=== PATIENT | female | born 1955 | race Caucasian/White ===

== ENCOUNTER 2018-03-23 18:27 | Observation (INO) | payer BC ==
[2018-03-23] MEDS ORDERED: ASPIRIN 81 MG CHEWABLE TABLETS PO ONE (19:00)
--- NOTE | 2018-03-23 19:00 | PDOC ---
History of Present Illness - General History Source: Patient, Family Exam Limitations: No Limitations <Mercedes Linares - Last Filed: 03/23/18 19:26> <Araeblla Mtz - Last Filed: 03/23/18 23:10> - General Chief Complaint: Irregular Heart Beat Stated Complaint: Shortness of Breath Time Seen by Provider: 03/23/18 18:59 - History of Present Illness Initial Comments: 03/23/18 19:26 The patient is a 63 yo F with a significant past medical history of AFib on Xarelto and recent diagnosis of Parkinsons who presents to the emergency department for shortness of breath this morning sent by Dr. Lynn. The patient states she felt an irregular heart beat. The patient's sister at bedside, a registered nurse, acts as a manager local and states "even her wrist pulse felt irregular". The patient reports chronic neck and jaw tightness. The patient denies chest pain, dizziness, lightheadedness. The patient denies headache, fever, chills, N/V/D. She denies urinary changes. Allergies: NDKA PCP: Dr. Kate Neuologist: Dr. Lynn (Mercedes Linares) Past History <Mercedes Linares - Last Filed: 03/23/18 19:26> - Past Medical History Cardiac Disorders: Yes (atrial fibrillarion on xarelto x2 years) COPD: No HTN: Yes Other medical history: myleoma left brease - Suicide/Smoking/Psychosocial Hx Smoking History: Former smoker Have you smoked in the past 12 months: No If you are a former smoker, when did you quit?: 1997 Information on smoking cessation initiated: No Hx Alcohol Use: No Drug/Substance Use Hx: No <Arabella Mtz - Last Filed: 03/23/18 23:10> - Past Medical History Allergies/Adverse Reactions: Allergies Allergy/AdvReac Type Severity Reaction Status Date / Time No Known Allergies Allergy Verified 03/23/18 18:45 Home Medications: Ambulatory Orders Calcium Carbonate [Calcium] 500 mg PO DAILY 03/23/18 Losartan/Hydrochlorothiazide [Losartan-Hctz 50-12.5 mg Tab] 1 each PO DAILY Multivitamins [Tab-A-Vit -] 1 tab PO DAILY 03/23/18 Omeprazole Magnesium [Prilosec Otc] 40 mg PO DAILY 03/23/18 Rivaroxaban [Xarelto -] 20 mg PO HS 03/23/18 Sotalol HCl [Betapace] 80 mg PO BID 03/23/18 Review of Systems - Review of Systems Able to Perform ROS?: Yes <Mercedes Linares - Last Filed: 03/23/18 19:26> <Arabella Mtz - Last Filed: 03/23/18 23:10> - Review of Systems Comments:: 03/23/18 19:32 CONSTITUTIONAL: Absent: fever, chills, diaphoresis, generalized weakness, malaise, loss of appetite HEENT: Absent: rhinorrhea, nasal congestion, throat pain, throat swelling, difficulty swallowing, mouth swelling, ear pain, eye pain, visual Changes CARDIOVASCULAR: (+) SOB and irregular heart rate, Absent: chest pain, syncope, palpitations, lightheadedness, peripheral edema RESPIRATORY: Absent: cough, dyspnea with exertion, orthopnea, wheezing, stridor, hemoptysis GASTROINTESTINAL: Absent: abdominal pain, abdominal distension, nausea, vomiting, diarrhea, constipation, melena, hematochezia GENITOURINARY: Absent: dysuria, frequency, urgency, hesitancy, hematuria, flank pain, genital pain MUSCULOSKELETAL: Absent: myalgia, arthralgia, joint swelling SKIN: Absent: rash, itching, pallor HEMATOLOGIC/IMMUNOLOGIC: Absent: easy bleeding, easy bruising, lymphadenopathy, frequent infections ENDOCRINE: Absent: unexplained weight gain, unexplained weight loss, heat intolerance, cold intolerance NEUROLOGIC: Absent: headache, focal weakness or paresthesias, dizziness, unsteady gait, seizure, mental status changes, bladder or bowel incontinence PSYCHIATRIC: Absent: anxiety, depression, suicidal or homicidal ideation, hallucinations. (Mercedes Linares) *Physical Exam <Mercedes Linares - Last Filed: 03/23/18 19:26> <Arabella Mtz - Last Filed: 03/23/18 23:10> - Vital Signs Last Vital Signs Temp Pulse Resp BP Pulse Ox 98.1 F 63 16 133/68 99 03/23/18 18:45 03/23/18 19:52 03/23/18 18:45 03/23/18 18:45 03/23/18 19:52 - Physical Exam Comments: 03/23/18 19:32 GENERAL: Well developed, well nourished. Awake and alert. No acute distress. HEENT: Normocephalic, atraumatic. PERRLA, EOMI. No conjunctival pallor. Sclera are non- icteric. Moist mucous membranes. Oropharynx is clear. NECK: Supple. Full ROM. No JVD. Carotid pulses 2+ and symmetric, without bruits. No thyromegaly. No lymphadenopathy. CARDIOVASCULAR: Regular rate and rhythm. No murmurs, rubs, or gallops. Distal pulses are 2+ and symmetric. PULMONARY: No evidence of respiratory distress. Lungs clear to auscultation bilaterally. No wheezing, rales or rhonchi. ABDOMINAL: Soft. Non-tender. Non-distended. No rebound or guarding. No organomegaly. Normoactive bowel sounds. MUSCULOSKELETAL Normal range of motion at all joints. No bony deformities or tenderness. No CVA tenderness. EXTREMITIES: (+) bilateral pedal edema. No cyanosis. No clubbing. No edema. No calf tenderness. SKIN: Warm and dry. Normal capillary refill. No rashes. No jaundice. NEUROLOGICAL: Alert, awake, appropriate. Cranial nerves 2-12 intact. Normoreflexic in the upper and lower extremities. Normal speech. Toes are down-going bilaterally. Gait is normal without ataxia. PSYCHIATRIC: Cooperative. Good eye contact. Appropriate mood and affect. (Mercedes Linares) ED Treatment Course - LABORATORY CBC & Chemistry Diagram: 03/23/18 20:12 03/23/18 20:12 <Arabella Mtz - Last Filed: 03/23/18 23:10> - ADDITIONAL ORDERS Additional order review: Laboratory Results 03/23/18 03/23/18 20:12 20:12 PT with INR 12.70 INR 1.08 Sodium 139 Potassium 4.2 Chloride 104 Carbon Dioxide 27 Anion Gap 9 BUN 22 H Creatinine 0.7 Creat Clearance w eGFR > 60 Random Glucose 83 Calcium 8.7 Magnesium 2.3 Total Bilirubin 0.6 AST 20 ALT 33 Alkaline Phosphatase 59 Creatine Kinase 61 Troponin I < 0.02 B-Natriuretic Peptide 176.6 H Total Protein 6.9 Albumin 3.7 03/23/18 20:12 RBC 4.72 MCV 82.4 MCHC 34.6 RDW 13.6 MPV 9.6 Neutrophils % 57.3 Lymphocytes % 28.4 Monocytes % 9.0 Eosinophils % 4.4 Basophils % 0.9 - RADIOLOGY Radiology Studies Ordered: Category Date Time Status CHEST X-RAY PORTABLE* [RAD] Stat Radiology 03/23/18 19:00 Taken - Medications Given in the ED: ED Medications Discontinued Medications Generic Name Dose Route Start Last Admin Trade Name Bre PRN Reason Stop Dose Admin Al Hydroxide/Mg Hydroxide 30 ml 03/23/18 20:44 03/23/18 21:17 Mylanta Suspension - PO 03/23/18 20:45 30 ml ONCE ONE Administration Aspirin 162 mg 03/23/18 19:00 03/23/18 20:34 Asa - PO 03/23/18 19:01 162 mg ONCE ONE Administration Famotidine/Sodium Chloride 20 mg in 50 mls @ 100 mls/hr 03/23/18 21:16 22:10 Pepcid 20 Mg Premixed Ivpb - IVPB 03/23/18 21:45 100 mls/hr ONCE ONE Administration Medical Decision Making <Mercedes Linares - Last Filed: 03/23/18 19:26> <Arabella Mtz - Last Filed: 03/23/18 23:10> - Medical Decision Making 03/23/18 23:02 PMH Parkinsons, htn,afib 63-year-old female presents with shortness of breath and a complaint of palpitations. She does have a history of paroxysmal A. fib currently her EKG was normal sinus rhythm. She is on eliquist -in emergency department she complained of her palpitations and then repeat EKG showed she has normal sinus rhythm with occasional PVCs -pt has history of GERD and had c/o burning and was given maalox 03/23/18 23:09 (Arabella Mtz) *DC/Admit/Observation/Transfer <Mercedes Linares - Last Filed: 03/23/18 19:26> - Discharge Dispostion Decision to Admit order: Yes <Arabella Mtz - Last Filed: 03/23/18 23:10> Diagnosis at time of Disposition: Parkinson disease Dyspnea Qualifiers: Dyspnea type: dyspnea on exertion Qualified Code(s): R06.09 - Other forms of dyspnea Afib Qualifiers: Atrial fibrillation type: paroxysmal Qualified Code(s): I48.0 - Paroxysmal atrial fibrillation - Discharge Dispostion Condition at time of disposition: Good Decision to Admit order Date/Time: Decision to Admit Order Category Date Time Status Decision to Admit to Hospital Routine Admission 03/23/18 20:45 Active - Referrals Referrals: Lilia Lu MD [Primary Care Provider] - - Attestations Scribe Attestion: 03/23/18 19:33 Documentation prepared by Mercedes Linares, acting as director of medical services for Arabella Mtz MD (Mercedes Linares)
--- NOTE | 2018-03-23 19:05 | HP ---
Admitting History and Physical - Primary Care Physician PCP: Fab Kate - Admission History of Present Illness: palpitations new onset afib - Smoking History Smoking history: Former smoker Have you smoked in the past 12 months: No If you are a former smoker, when did you quit?: 1997 - Alcohol/Substance Use Hx Alcohol Use: No Home Medications - Allergies Allergies/Adverse Reactions: Allergies Allergy/AdvReac Type Severity Reaction Status Date / Time No Known Allergies Allergy Verified 03/23/18 18:45 Physical Examination Vital Signs: Vital Signs Temperature 98.1 F 03/23/18 18:45 Pulse Rate 64 03/23/18 18:45 Respiratory Rate 16 03/23/18 18:45 Blood Pressure 133/68 03/23/18 18:45 O2 Sat by Pulse Oximetry (%) 99 03/23/18 18:45 Problem List - Problems (1) New onset a-fib Code(s): I48.91 - UNSPECIFIED ATRIAL FIBRILLATION
[2018-03-23] MEDS ORDERED: ASPIRIN 81 MG CHEWABLE TABLETS ONE (20:29)
[2018-03-23 20:37] LABS: BASO % 0.9 % (0-2.0); EOS % 4.4 % (0-4.5); HEMATOCRIT 38.9 % (32.4-45.2); HEMOGLOBIN 13.5 GM/dL (10.7-15.3); LYMPH % 28.4 % (8-40); MCH 28.5 pg (25.7-33.7); MCHC 34.6 g/dl (32.0-36.0); MEAN CELL VOLUME 82.4 fl (80-96); MEAN PLT VOLUME 9.6 fl (7.5-11.1); NEUT % 57.3 % (42.8-82.8); PLATELET COUNT 231 K/MM3 (134-434); RBC 4.72 M/mm3 (3.60-5.2); RDW 13.6 % (11.6-15.6)
[2018-03-23] MEDS ORDERED: MAG HYDROX/AL HYDROX/SIMETH -MYLANTA- ORAL SUSPENSION PO ONE (20:44)
[2018-03-23 20:54] LABS: INR 1.08 (0.83-1.09); PROTHROMBIN TIME (PATIENT) 12.7 SEC (9.7-13.0)
[2018-03-23 21:05] LABS: ALBUMIN 3.7 g/dl (3.4-5.0); ALK PHOS 59 U/L (45-117); ANION GAP 9 MMOL/L (8-16); BILIRUBIN,TOTAL 0.6 mg/dL (0.2-1); BLOOD UREA NITROGEN 22 mg/dL (7-18); CALCIUM 8.7 mg/dL (8.5-10.1); CHLORIDE 104 mmol/L (98-107); CO2 27 mmol/L (21-32); CREATININE 0.7 mg/dL (0.55-1.3); GLUCOSE,RANDOM 83 mg/dL (74-106); MAGNESIUM 2.3 mg/dL (1.8-2.4); N-TERMINAL BNP 176.6 pg/ml (5-125); POTASSIUM 4.2 mmol/L (3.5-5.1); SGOT/AST 20 U/L (15-37); SGPT/ALT 33 U/L (13-61); SODIUM 139 mmol/L (136-145); TOT PROT 6.9 g/dl (6.4-8.2)
[2018-03-23] MEDS ORDERED: MAG HYDROX/AL HYDROX/SIMETH 30 ML UNIT-DOSE CUP ONE (21:05)
[2018-03-23] MEDS ORDERED: FAMOTIDINE 20 MG/50 ML IVPB 20 MG/50 ML MG IVPB ONE ×2 (21:16→21:34)
[2018-03-24] MEDS ORDERED: ACETAMINOPHEN 325 MG TABLET (FP) PO PRN (09:50)
[2018-03-24] MEDS ORDERED: MAG HYDROX/AL HYDROX/SIMETH 30 ML UNIT-DOSE CUP ONE (09:53)
[2018-03-24] MEDS ORDERED: ACETAMINOPHEN 325 MG TABLET (FP) ONE (09:53)
[2018-03-24] MEDS ORDERED: MAG HYDROX/AL HYDROX/SIMETH 30 ML UNIT-DOSE CUP PO ONE (10:00)
[2018-03-24 10:08] LABS: EOS % 3.3 % (0-4.5); HEMATOCRIT 40.2 % (32.4-45.2); LYMPH % 21.2 % (8-40); MCHC 32.4 g/dl (32.0-36.0); MEAN CELL VOLUME 83.5 fl (80-96); MEAN PLT VOLUME 9.6 fl (7.5-11.1); MONO % 8.3 % (3.8-10.2); NEUT % 66.2 % (42.8-82.8); PLATELET COUNT 202 K/MM3 (134-434); RBC 4.82 M/mm3 (3.60-5.2); RDW 13.7 % (11.6-15.6); WHITE BLOOD COUNT 5.6 K/mm3 (4.0-10.0)
[2018-03-24 11:22] LABS: ALBUMIN 3.6 g/dl (3.4-5.0); ALK PHOS 50 U/L (45-117); ANION GAP 10 MMOL/L (8-16); BILIRUBIN,TOTAL 1.1 mg/dL (0.2-1); BLOOD UREA NITROGEN 21 mg/dL (7-18); CALCIUM 8.6 mg/dL (8.5-10.1); CHLORIDE 104 mmol/L (98-107); CO2 25 mmol/L (21-32); CREATININE 0.6 mg/dL (0.55-1.3); GLUCOSE,RANDOM 76 mg/dL (74-106); POTASSIUM 4.2 mmol/L (3.5-5.1); SGOT/AST 22 U/L (15-37); SGPT/ALT 37 U/L (13-61); SODIUM 140 mmol/L (136-145); TOT PROT 6.7 g/dl (6.4-8.2)
--- NOTE | 2018-03-24 14:33 | CON.CARD ---
Consult Consult Specialty:: Cardiology Referred by:: Fab Kate MD Reason for Consultation:: PAF, BAILEY - History of Present Illness Chief Complaint: Palpitations, BAILEY History of Present Illness: The patient is a 63 yo [place] female with a significant past medical history of paroxysmal AFib [id number] on Xarelto, HTN, GERD, Parkinsons presented to the emergency department for shortness of breath on exertion with climbing inclines over last 2 months, also reports palpitations and irregular pulse. Patient denies chest pain, dizziness, lightheadedness, true syncope, orthopnea, PND or LE edema. Daughter confirms medication compliance. Patient sees Dr. Santos Claros at [facility], has not had stress testing within last 2 years. - History Source History Provided By: Family Member Limitations to Obtaining History: Language Barrier - Past Medical History Cardio/Vascular: Yes: AFIB, HTN - Alcohol/Substance Use Hx Alcohol Use: No - Smoking History Smoking history: Former smoker Have you smoked in the past 12 months: No If you are a former smoker, when did you quit?: 1997 Home Medications - Allergies Allergies/Adverse Reactions: Allergies Allergy/AdvReac Type Severity Reaction Status Date / Time No Known Allergies Allergy Verified 03/23/18 18:45 - Home Medications Home Medications: Ambulatory Orders Calcium Carbonate [Calcium] 500 mg PO DAILY 03/23/18 Losartan/Hydrochlorothiazide [Losartan-Hctz 50-12.5 mg Tab] 1 each PO DAILY Multivitamins [Tab-A-Vit -] 1 tab PO DAILY 03/23/18 Omeprazole Magnesium [Prilosec Otc] 40 mg PO DAILY 03/23/18 Rivaroxaban [Xarelto -] 20 mg PO HS 03/23/18 Sotalol HCl [Betapace] 80 mg PO BID 03/23/18 Review of Systems - Review of Systems HENT: reports: No Symptoms Neck: reports: No Symptoms Cardiovascular: reports: Palpitations Respiratory: reports: Exercise Intolerance, SOB on Exertion Gastrointestinal: reports: Abdominal Pain (Post ASA) Genitourinary: reports: No Symptoms Musculoskeletal: reports: No Symptoms Vital Signs: Vital Signs Temperature 98.1 F 03/23/18 18:45 Pulse Rate 66 03/24/18 14:30 Respiratory Rate 18 03/24/18 14:30 Blood Pressure 125/59 L 03/24/18 14:30 O2 Sat by Pulse Oximetry (%) 98 03/24/18 14:30 Constitutional: Yes: No Distress, Calm Neck: Yes: Supple Respiratory: Yes: Regular, CTA Bilaterally Gastrointestinal: Yes: Normal Bowel Sounds, Soft, Abdomen, Obese Cardiovascular: Yes: Regular Rate and Rhythm JVD: No Carotid Bruit: No Heart Sounds: Yes: S1, S2 Edema: No - Other Data Labs, Other Data: CBC, BMP 03/24/18 09:53 03/24/18 09:53 INR, PTT INR 1.08 (0.83-1.09) 03/23/18 20:12 Troponin, BNP 03/23/18 03/24/18 03/24/18 20:12 09:53 09:53 Troponin I < 0.02 < 0.02 Cancelled B-Natriuretic Peptide 176.6 H Troponin, BNP 03/23/18 03/24/18 03/24/18 20:12 09:53 09:53 Troponin I < 0.02 < 0.02 Cancelled B-Natriuretic Peptide 176.6 H NSR PAC QTc 454 msec Imaging - Results Chest X-ray: Report Reviewed (NAD) Problem List - Problems (1) Dyspnea on exertion Code(s): R06.09 - OTHER FORMS OF DYSPNEA (2) Hypertensive heart disease Code(s): I11.9 - HYPERTENSIVE HEART DISEASE WITHOUT HEART FAILURE Qualifiers: Heart failure presence: without heart failure Qualified Code(s): I11.9 - Hypertensive heart disease without heart failure (3) Palpitations Code(s): R00.2 - PALPITATIONS (4) Afib Code(s): I48.91 - UNSPECIFIED ATRIAL FIBRILLATION Qualifiers: Atrial fibrillation type: paroxysmal Qualified Code(s): I48.0 - Paroxysmal atrial fibrillation (5) Parkinson disease Code(s): G20 - PARKINSON'S DISEASE Assessment/Plan 1. Palpitations referable to PAF->SR [id number] 2. BAILEY with need to r/o ischemia 3. GERD 4. HTN heart disease P:1. Continue Sotalol 80 bid, Xarelto 20 qpm and Hyzaar 50/12.5 qd 2. Telemetry monitoring, if remains mostly in SR and rate-controlled, may d/c home with f/u stress testing at Dr. Santos Claros office at [facility] 3. Thank you for consultative opportunity
[2018-03-24 15:35] VITALS: BMI 37.9
--- NOTE | 2018-03-24 15:38 | EKG ---
Test Reason : Blood Pressure : / mmHG Vent. Rate : 067 BPM Atrial Rate : 058 BPM P-R Int : 000 ms QRS Dur : 082 ms QT Int : 432 ms P-R-T Axes : 000 -01 008 degrees QTc Int : 456 ms POOR DATA QUALITY, INTERPRETATION MAY BE ADVERSELY AFFECTED NSR AOPCs repolarization abnormalities ABNORMAL ECG Confirmed by TORIE FARLEY MD ([id number]) on 03/24/2018 3:38:37 PM Referred By: Confirmed By:TORIE FARLEY MD
--- NOTE | 2018-03-24 15:40 | EKG ---
Test Reason : Blood Pressure : / mmHG Vent. Rate : 064 BPM Atrial Rate : 064 BPM P-R Int : 160 ms QRS Dur : 090 ms QT Int : 452 ms P-R-T Axes : 000 037 028 degrees QTc Int : 466 ms SINUS RHYTHM WITH PREMATURE SUPRAVENTRICULAR COMPLEXES OTHERWISE NORMAL ECG WHEN COMPARED WITH ECG OF 23-MAR-2018 18:51, PREMATURE SUPRAVENTRICULAR COMPLEXES ARE NOW PRESENT Confirmed by MARTINE BERUMEN, TORIE ([id number]) on 03/24/2018 3:39:53 PM Referred By: Confirmed By:TORIE FARLEY MD
--- NOTE | 2018-03-24 15:40 | EKG ---
Test Reason : Blood Pressure : / mmHG Vent. Rate : 063 BPM Atrial Rate : 063 BPM P-R Int : 158 ms QRS Dur : 090 ms QT Int : 444 ms P-R-T Axes : 068 051 044 degrees QTc Int : 454 ms NORMAL SINUS RHYTHM NORMAL ECG NO PREVIOUS ECGS AVAILABLE Confirmed by MARTINE BERUMEN, TORIE ([id number]) on 03/24/2018 3:40:03 PM Referred By: Confirmed By:TORIE FARLEY MD
[2018-03-24] MEDS ORDERED: SOTALOL HCL 80 MG TABLET (FP) PO SCH (16:49)
--- NOTE | 2018-03-24 16:54 | DS ---
Physical Examination Vital Signs: Vital Signs Temperature 98.0 F 03/24/18 15:28 Pulse Rate 66 03/24/18 14:30 Respiratory Rate 20 03/24/18 15:28 Blood Pressure 125/59 L 03/24/18 14:30 O2 Sat by Pulse Oximetry (%) 98 03/24/18 14:30 Constitutional: Yes: No Distress HENT: Yes: Atraumatic Neck: Yes: Supple Cardiovascular: Yes: Regular Rate and Rhythm Respiratory: Yes: CTA Bilaterally Gastrointestinal: Yes: Normal Bowel Sounds Extremities: Yes: WNL Edema: No Peripheral Pulses WNL: Yes Neurological: Yes: Alert, Oriented Labs: CBC, BMP 03/24/18 09:53 03/24/18 09:53 Discharge Summary Reason For Visit: ATRIAL FIBRILATION/PARKINSONS DISEASE Current Active Problems Afib (Acute) Dyspnea (Acute) Dyspnea on exertion (Acute) Hypertensive heart disease (Acute) New onset a-fib (Acute) Palpitations (Acute) Parkinson disease (Acute) Condition: Good - Instructions Referrals: Lilia Lu MD [Primary Care Provider] - - Home Medications Comprehensive Discharge Medication List: Ambulatory Orders Calcium Carbonate [Calcium] 500 mg PO DAILY 03/23/18 Losartan/Hydrochlorothiazide [Losartan-Hctz 50-12.5 mg Tab] 1 each PO DAILY Multivitamins [Multivit ([facility] Formulary)] 1 tab PO DAILY 03/23/18 Omeprazole Magnesium [Prilosec Otc] 40 mg PO DAILY 03/23/18 Rivaroxaban [Xarelto -] 20 mg PO HS 03/23/18 Sotalol HCl [Betapace] 80 mg PO BID 03/23/18 dc home follow up her own barrel roller
[2018-03-24] MEDS ORDERED: RIVAROXABAN 20 MG TABLET PO SCH (18:00)
[2018-03-24 18:58] VITALS: BP 127/70; PULSE 68; TEMP 97.7
[2018-03-25] MEDS ORDERED: LOSARTAN 50MG/HCTZ 12.5MG 1 TAB (FP) PO SCH (10:00)
== END 2018-03-24 06:50 | disposition home or self-care (01) ==
LOC: JER 18:27 → JERBED 20:45 → J4W 03-24 15:54
PROVIDERS: ADMIT Internal Medicine; ATTEND Internal Medicine
PROC: 3E033GC Introduction of Other Therapeutic Substance into Peripheral Vein, Percutaneous Approach (ICD-10-PCS; principal; 2018-03-23)
DX: I48.0 Paroxysmal atrial fibrillation (principal); R06.09 Other forms of dyspnea; I11.9 Hypertensive heart disease without heart failure; R00.2 Palpitations; G20 Parkinson's disease; K21.9 Gastro-esophageal reflux disease without esophagitis; Z85.79 Personal history of other malignant neoplasms of lymphoid, hematopoietic and related tissues; Z87.891 Personal history of nicotine dependence; Z79.01 Long term (current) use of anticoagulants
CPT/HCPCS: 36415; 71045-TC-FY; 80053; 82550; 83735; 83880; 84484; 85025; 85610; 93005; 93010; 96365; 99285-25; G0378